=== PATIENT | male | born 1985 | race Caucasian/White ===

== ENCOUNTER 2016-08-29 16:05 | Emergency (ER) | payer MEDICAID ==
[~2016-08-29] VITALS: Ht 172.7 cm; Wt 63.5 kg
--- NOTE | 2016-08-29 16:30 | NUR ---
PT PRESENTS TO ER C/O +SI WITH PLAN TO RUN INTO TRAFFIC. REPORTS HEARING VOICES THAT TELL HIM TO KILL HIMSELF. CONTRACTS FOR SAFETY AT THIS TIME. NAD NOTED. DENIES PHYSICAL COMPLAINTS. IN ER BED 10.
[2016-08-29 16:36] LABS: BASOPHILS % (AUTO) 0.6 % (0.0-2.0); EOSINOPHILS # (AUTO) 0.2 /CMM (0.0-0.7); EOSINOPHILS % (AUTO) 2.9 % (0.0-6.0); HEMATOCRIT 40 % (39-51); HEMOGLOBIN 13.2 g/dL (13.5-17.5); LYMPHOCYTES # (AUTO) 2.5 /CMM (0.8-4.8); LYMPHOCYTES % (AUTO) 32.3 % (20.0-44.0); MEAN CORPUSCULAR HEMOGLOBIN 28 PG (26.0-33.0); MEAN CORPUSCULAR HGB CONC 33 g/dl (31.0-36.0); MEAN CORPUSCULAR VOLUME 85 fL (80-96); MONOCYTES # (AUTO) 0.6 /CMM (0.1-1.30); MONOCYTES % (AUTO) 7.3 % (2.0-12.0); NEUTROPHILS # (AUTO) 4.4 /CMM (1.8-8.9); NEUTROPHILS % (AUTO) 56.9 % (43.0-81.0); PLATELET COUNT (AUTO) 392 /CMM (150-450); RDW COEFFICIENT OF VARIATION 15.9 (11.5-15.0); RED BLOOD CELL COUNT(AUTO) 4.65 MIL/uL (4.5-6.0); WHITE BLOOD COUNT (AUTO) 7.8 K/uL (4.3-11.0)
[2016-08-29 16:43] LABS: APPEARANCE,URINE CLEAR (CLEAR); BILIRUBIN,URINE NEGATIVE (NEGATIVE); BLOOD, URINE NEGATIVE Ery/uL (NEGATIVE); COLOR,URINE YELLOW (YELLOW); KETONES,URINE NEGATIVE (NEGATIVE); LEUKOCYTE ESTERASE ,URINE NEGATIVE (NEGATIVE); NITRITE, URINE NEGATIVE (NEGATIVE); PROTEIN,URINE NEGATIVE (NEGATIVE); UGLUCOSE NEGATIVE (NEGATIVE); UROBILINOGEN,URINE 0.2 EU/dL (0.2)
[2016-08-29 16:49] LABS: CALCIUM, SERUM 8.9 mg/dL (8.5-10.1); CARBON DIOXIDE 27 mmol/L (21-32); CHLORIDE 103 mmol/L (98-107); CREATININE 0.8 mg/dL (0.6-1.3); GLUCOSE 89 mg/dL (74-106); POTASSIUM 3.9 mmol/L (3.5-5.1); SODIUM SERUM 138 mmol/L (136-145); UREA NITROGEN, BLOOD 17 mg/dL (7-18)
[2016-08-29 16:55] LABS: ALANINE AMINOTRANSFERASE 57 U/L (12-78); ALBUMIN 3.5 g/dL (3.4-5.0); ALCOHOL, BLOOD < 3 mg/dL (0-0); ALKALINE PHOSPHATASE 117 U/L (46-116); ASPARTATE AMINOTRANSFERASE 25 U/L (15-37); BILIRUBIN,TOTAL 0.2 mg/dL (0.2-1.0); TOTAL PROTEIN, SERUM 7.3 g/dL (6.4-8.2)
[2016-08-29 16:59] LABS: SALICYLATE 1.3 mg/dL (2.8-20.0)
[2016-08-29 17:00] LABS: ACETAMINOPHEN 0 ug/ml (10-30)
--- NOTE | 2016-08-29 17:31 | NUR ---
CALLED [facility] FOR PSYCH EVAL, ETA 1 HOUR
--- NOTE | 2016-08-29 19:11 | NUR ---
BOB RN AT BEDSIDE FOR PSYCH EVAL.
--- NOTE | 2016-08-29 19:22 | NUR ---
REPORT GIVEN TO LAMONT ORELLANA FOR NOHELIA. NAD NOTED. RESTING QUIETLY.
--- NOTE | 2016-08-29 19:25 | NUR ---
ASSUME PT CARE. RESTING IN BED. VSS.COOPERATIVE. WILL CONTINUE TO MONIITOR.
[2016-08-29 21:20] VITALS: BP 132/76
--- NOTE | 2016-08-29 21:43 | NUR ---
PT ACCEPTED TO [facility] BY , NUMBER FOR REPORT IS [phone]
--- NOTE | 2016-08-29 21:46 | NUR ---
CALLED [facility] FOR TRANSPORT TO [facility] [place], ETA 10-15 MIN
--- NOTE | 2016-08-29 22:14 | NUR ---
REPORT GIVEN. SPOKE TO GINO. PT TRANSFERED. STABLE CONDITION.
== END 2016-08-29 22:17 ==
LOC: ER 16:07
DX: R45.851 Suicidal ideations (principal); F15.10 Other stimulant abuse, uncomplicated; D64.9 Anemia, unspecified; F31.9 Bipolar disorder, unspecified; Z88.8 Allergy status to other drugs, medicaments and biological substances
CPT/HCPCS: 36415; 80048; 80076; 80305; 80329; 81001; 85025; 99285; A4606; G0480 ×2; Z7610; 81000-TC

== ENCOUNTER 2017-02-14 16:25 | Emergency (ER) | payer MEDICAID ==
--- NOTE | 2017-02-14 19:05 | NUR ---
CALLED PT IN [place], NO RESPONSE
--- NOTE | 2017-02-14 19:40 | NUR ---
CALLED PT IN [place], NO RESPONSE
== END 2017-02-14 19:44 | disposition home or self-care (01) ==
LOC: ER 16:26
DX: Z53.21 Procedure and treatment not carried out due to patient leaving prior to being seen by health care provider (principal)

== ENCOUNTER 2017-07-18 08:45 | Emergency (ER) | payer MEDICAID ==
[~2017-07-18] VITALS: Ht 172.7 cm; Wt 65.8 kg
--- NOTE | 2017-07-18 08:50 | NUR ---
AAOX3, BIB SELF TO ER C/O SUICIDAL IDEATION, TOOK 5-300MG SEROQUEL THIS AM. RR IS EVEN AND UNLABORED WITH NAD NOTED. SKIN IS WARM AND DRY. SI PRECAUTION IN PLACE. AWAITING MD FOR EVAL.
--- NOTE | 2017-07-18 09:30 | NUR ---
URINE OBTAINED SENT TO LAB
--- NOTE | 2017-07-18 09:43 | NUR ---
POISON CONTROL CALLED, SPOKE WITH BRANDI, EQUIPMENT SPECIALIST AND RESPIRATORY DEPRESSIONS ARE EXPECTED TOGETHER WITH EKG CHANGES. 6 HR OBS IS RECOMMENDED AND IF EVERYTHING IS NORMAL, PATIENT WILL BE CLEARED MEDICALLY. DR LOWERY INFORMED, EKG ADDED RECOMMENDED BY BRANDI.
[2017-07-18 10:00] LABS: BASOPHILS # (AUTO) 0.1 /CMM (0.0-0.2); BASOPHILS % (AUTO) 1.5 % (0.0-2.0); EOSINOPHILS % (AUTO) 1.2 % (0.0-6.0); HEMATOCRIT 39 % (39-51); HEMOGLOBIN 13.3 g/dL (13.5-17.5); LYMPHOCYTES # (AUTO) 2.7 /CMM (0.8-4.8); LYMPHOCYTES % (AUTO) 33.1 % (20.0-44.0); MEAN CORPUSCULAR HGB CONC 34 g/dl (31.0-36.0); MEAN CORPUSCULAR VOLUME 84 fL (80-96); MONOCYTES # (AUTO) 0.8 /CMM (0.1-1.30); MONOCYTES % (AUTO) 10.2 % (2.0-12.0); NEUTROPHILS # (AUTO) 4.6 /CMM (1.8-8.9); PLATELET COUNT (AUTO) 402 /CMM (150-450); RDW COEFFICIENT OF VARIATION 14.8 (11.5-15.0); RED BLOOD CELL COUNT(AUTO) 4.65 MIL/uL (4.5-6.0); WHITE BLOOD COUNT (AUTO) 8.3 K/uL (4.3-11.0)
[2017-07-18 10:02] LABS: CALCIUM, SERUM 8.8 mg/dL (8.5-10.1); CARBON DIOXIDE 25 mmol/L (21-32); CHLORIDE 102 mmol/L (98-107); CREATININE 0.9 mg/dL (0.6-1.3); GLUCOSE 101 mg/dL (74-106); POTASSIUM 3.4 mmol/L (3.5-5.1); SODIUM SERUM 137 mmol/L (136-145); UREA NITROGEN, BLOOD 13 mg/dL (7-18)
[2017-07-18 10:04] LABS: ACETAMINOPHEN 0 ug/ml (10-30); ALCOHOL, BLOOD < 3 mg/dL (0-0); SALICYLATE 1.5 mg/dL (2.8-20.0)
--- NOTE | 2017-07-18 13:01 | NUR ---
CALLED [facility] [phone]
[2017-07-18 15:37] VITALS: BP 161/76
--- NOTE | 2017-07-18 15:55 | NUR ---
CALLED FOR TRANSPORT TO [facility]. TRIP [id number] ETA 60 MINUTES
--- NOTE | 2017-07-18 15:57 | NUR ---
REPORT GIVEN TO RAKESH ORELLANA FOR NOHELIA AT [facility]
== END 2017-07-18 17:55 ==
LOC: ER 08:49
DX: T43.592A Poisoning by other antipsychotics and neuroleptics, intentional self-harm, initial encounter (principal); F20.9 Schizophrenia, unspecified; F31.9 Bipolar disorder, unspecified; Z88.8 Allergy status to other drugs, medicaments and biological substances; Y92.89 Other specified places as the place of occurrence of the external cause
CPT/HCPCS: 36415; 80048; 80305; 80329; 85025; 93005; 99285; A4606; G0480 ×2; Z7610